=== PATIENT | male | born 1955 | race Hispanic/Latino ===

== ENCOUNTER 2018-03-13 13:56 | Observation (INO) | payer OTHER ==
[~2018-03-13] VITALS: Ht 175.3 cm; Wt 124.0 kg
[2018-03-13] MEDS ORDERED: ASPIRIN 81 MG CHEW TAB PO ONE ×2 (14:15→18:30)
[2018-03-13 14:37] LABS: BASOPHILS % 0.2 % (0.0-1.0); EOSINOPHILS # (AUTO) 0.2 (0.0-0.4); EOSINOPHILS % 1.9 % (0.0-6.0); HEMATOCRIT 39.2 % (38.2-49.6); HEMOGLOBIN 12.8 g/dL (14.0-18.0); LYMPHOCYTES # (AUTO) 1.8 (1.0-3.2); MEAN CORPUSCULAR HEMOGLOBIN 25.8 pg (28-32); MEAN CORPUSCULAR HGB CONC 32.7 g/dL (31-35); MEAN CORPUSCULAR VOLUME 78.9 fL (81-99); MONOCYTES # (AUTO) 0.5 (0.2-0.8); MONOCYTES % 5.9 % (4.4-11.3); NEUTROPHILS # (AUTO) 5.6 (2.1-6.9); NEUTROPHILS % 69.4 % (38.7-80.0); PLATELET COUNT 185 x10e3/uL (140-360); RED BLOOD COUNT 4.97 x10e6/uL (4.3-5.7)
[2018-03-13 14:45] LABS: INR 1.07; PROTHROMBIN TIME 13.1 seconds (11.9-14.5)
[2018-03-13 14:46] LABS: PARTIAL THROMBOPLASTIN TIME 32.6 seconds (23.8-35.5)
[2018-03-13 14:53] LABS: ALBUMIN 3.6 g/dL (3.5-5.0); ALBUMIN/GLOBULIN RATIO 0.9 (0.8-2.0); ANION GAP 14.4 mmol/L (8-16); CALCIUM 9.1 mg/dL (8.4-10.2); CREATININE, SERUM 1.25 mg/dL (0.72-1.25); POTASSIUM 4.4 mmol/L (3.5-5.1)
[2018-03-13 15:00] LABS: CREATINE KINASE MB 2.5 ng/mL (0-5.0)
[2018-03-13] MEDS ORDERED: SODIUM CHLORIDE 0.9% 1000ML 1,000 ML IV STA (15:32)
[2018-03-13] MEDS ORDERED: INSULIN REGULAR, HUMAN 100 UNIT/1 ML 3ML VIAL IV ONE (15:45)
--- NOTE | 2018-03-13 15:52 | Diagnostic Imaging Report ---
EXAMINATION: CHEST 2 VIEWS INDICATION: \S\ORDER PLACED BY \S\[id number] \S\1450 \S\Y COMPARISON: None FINDINGS: PA and lateral views TUBES and LINES: None. LUNGS: Lungs are well inflated. Lungs are clear. There is no evidence of pneumonia or pulmonary edema. PLEURA: No pleural effusion or pneumothorax. HEART AND MEDIASTINUM: The cardiac silhouette is within normal limits. Mildly tortuous thoracic aorta. BONES AND SOFT TISSUES: Degenerative changes of the thoracic spine. Soft tissues are unremarkable. UPPER ABDOMEN: No free air under the diaphragm. IMPRESSION: No acute thoracic abnormality. Mildly tortuous thoracic aorta. Signed by: Dr. Bety Amaya M.D. on 03/13/2018 3:49 PM
[2018-03-13 18:14] LABS: BILIRUBIN,URINE NEGATIVE (NEGATIVE); CLARITY,URINE SL CLOUDY (CLEAR); COLOR,URINE YELLOW (YELLOW); KETONES,URINE NEGATIVE (NEGATIVE); LEUKOCYTE ESTERASE ,URINE NEGATIVE (NEGATIVE); NITRITE,URINE NEGATIVE (NEGATIVE); PROTEIN,URINE DIPSTICK NEGATIVE (NEGATIVE); URINE UROBILINOGEN 0.2 mg/dL (0.2 - 1)
[2018-03-13 18:26] LABS: AMORPHOUS SEDIMENT,URINE FEW (FEW); BACTERIA,URINE RARE /HPF; EPITHELIAL CELLS,URINE RARE /LPF
[2018-03-13] MEDS ORDERED: DEXTROSE 50% SYRINGE 50 ML IV PRN (18:30)
[2018-03-13] MEDS ORDERED: ONDANSETRON HCL INJ 2 MG/ML VIAL IV PRN (18:30)
[2018-03-13] MEDS ORDERED: ENALAPRIL MALEA20 MG PO (18:58)
[2018-03-13] MEDS ORDERED: PRAVASTATIN SOD20 MG PO (18:58)
[2018-03-13] MEDS ORDERED: MECLIZINE HCL25 MG PO (18:58)
[2018-03-13] MEDS ORDERED: LYRICA75 MG PO (18:58)
[2018-03-13] MEDS ORDERED: PANTOPRAZOLE SO40 MG PO (18:58)
[2018-03-13] MEDS ORDERED: ATENOLOL25 MG PO (18:58)
[2018-03-13] MEDS ORDERED: ULTRAM 50MG50 MG PO (18:58)
[2018-03-13] MEDS ORDERED: HUMALOG100 UNIT/3 SC (18:58)
[2018-03-13] MEDS ORDERED: GLIPIZIDE10 MG PO (18:58)
[2018-03-13] MEDS: SODIUM CHLORIDE 0.9% 1000ML 1,000 ML IV SCH (19:08)
[2018-03-13 20:15] VITALS: BP 103/57
[2018-03-13] MEDS ORDERED: INSULIN REGULAR, HUMAN 100 UNIT/1 ML 3ML VIAL SQ SCH (21:00)
[2018-03-13 21:30] VITALS: BP 103/57
[2018-03-13 21:31] VITALS: BP 103/57
[2018-03-14] VITALS (8 sets, daily range): BP systolic 102–136; BP diastolic 61–71
[2018-03-14] MEDS: SODIUM CHLORIDE 0.9% 1000ML 1,000 ML IV SCH ×2 (00:52→14:21)
[2018-03-14 01:51] LABS: CREATINE KINASE 30 IU/L (30-200)
[2018-03-14 05:11] LABS: BASOPHILS % 0.3 % (0.0-1.0); EOSINOPHILS # (AUTO) 0.2 (0.0-0.4); EOSINOPHILS % 3.5 % (0.0-6.0); HEMOGLOBIN 11.8 g/dL (14.0-18.0); LYMPHOCYTES # (AUTO) 1.9 (1.0-3.2); LYMPHOCYTES % 30.7 % (18.0-39.1); MEAN CORPUSCULAR HEMOGLOBIN 25.2 pg (28-32); MEAN CORPUSCULAR HGB CONC 31.1 g/dL (31-35); MONOCYTES # (AUTO) 0.6 (0.2-0.8); MONOCYTES % 8.9 % (4.4-11.3); NEUTROPHILS # (AUTO) 3.5 (2.1-6.9); NEUTROPHILS % 55.8 % (38.7-80.0); PLATELET COUNT 157 x10e3/uL (140-360); RED BLOOD COUNT 4.69 x10e6/uL (4.3-5.7); RED CELL DISTRIBUTION WIDTH 15.1 % (11.7-14.4)
[2018-03-14 05:26] LABS: ANION GAP 11.1 mmol/L (8-16); BLOOD UREA NITROGEN 30 mg/dL (7-26); BUN/CREATININE RATIO 29 (6-25); CALCIUM 8.3 mg/dL (8.4-10.2); CARBON DIOXIDE 23 mmol/L (22-29); CHLORIDE 108 mmol/L (98-107); CREATININE, SERUM 1.05 mg/dL (0.72-1.25); EST GLOMERULAR FILTRATION RATE > 60 ML/MIN (60-); GLUCOSE 319 mg/dL (74-118); POTASSIUM 4.1 mmol/L (3.5-5.1); SODIUM 138 mmol/L (136-145)
[2018-03-14 06:01] LABS: CREATINE KINASE MB 1.7 ng/mL (0-5.0)
--- NOTE | 2018-03-14 06:34 | Diagnostic Imaging Report ---
EXAMINATION: CHEST SINGLE (PORTABLE) INDICATION: Chest pain COMPARISON: 03/13/2018 FINDINGS: TUBES and LINES: None. LUNGS: Lungs are well inflated. Lungs are clear. There is no evidence of pneumonia or pulmonary edema. PLEURA: No pleural effusion or pneumothorax. HEART AND MEDIASTINUM: The cardiomediastinal silhouette is unremarkable. BONES AND SOFT TISSUES: No acute osseous lesion. Partially visualized plate and screws construct at the anterior cervical spine Soft tissues are unremarkable. UPPER ABDOMEN: No free air under the diaphragm. IMPRESSION: No acute thoracic abnormality. Signed by: Dr. Jeevan Avery M.D. on 03/14/2018 6:30 AM
[2018-03-14] MEDS ORDERED: DEXTROSE 50% SYRINGE 50 ML IV PRN (07:30)
--- NOTE | 2018-03-14 08:08 | History and Physical ---
CHIEF COMPLAINT: Chest pain on and off since the last 3 days associated with dizziness. HISTORY OF PRESENT ILLNESS: This 62-year-old male with a past medical history of multiple medical problems was admitted at [facility] last evening with the above complaint. As per patient, since the last 3 to 4 days, he was having left-sided chest pain on and off, no radiation, no relation to exertion. Also, the patient says, "I have had vertigo." The patient feels dizziness, especially on changing positions, a room-spinning sensation. Hence, the patient came to the ER last evening. As per patient, he was admitted at [facility] in [place] last month with chest pain. As per patient, he had cardiac angiogram done at that hospital. The patient does not know the result. At present, the patient is lying comfortably in bed in no apparent distress. No chest pain at present. No nausea, vomiting, or diarrhea. No abdominal pain. No loss of consciousness. No palpitations. No headaches. No hematemesis. No melena, hematuria or dysuria. No fever. No cough. No witnessed seizure. Complains of trouble breathing on exertion. PAST MEDICAL HISTORY 1. Diabetes mellitus, type 2, very uncontrolled. 2. Hypertension. 3. Hyperlipidemia. 4. Chronic pain. 5. Diabetic neuropathy. 6. COPD. 7. Morbid obesity. MEDICATIONS: As listed in the chart. ALLERGIES: NO KNOWN DRUG ALLERGIES. SOCIAL HISTORY: Smoking plus. No alcohol. No illicit drug use. Lives with family. SURGICAL HISTORY 1. C-spine surgery. 2. Hernia surgery. PHYSICAL EXAMINATION GENERAL: The patient is alert, awake and oriented times 3, in no apparent distress, lying in bed. No cyanosis. No icterus. No pallor. VITALS: Temperature is 97, pulse 60 per minute, respiratory rate 18 per minute. Blood pressure is 102/70. Saturation is 96% on 2 L oxygen. HEENT: Normocephalic and atraumatic. PERRLA. NECK: Soft and supple. No JVD. No carotid bruit. No lymphadenopathy. LUNGS: Air entry bilaterally equal. HEART: No murmur, gallop or rub. ABDOMEN: Soft and nontender. Bowel sounds plus. 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 No focal deficit. EXTREMITIES: No cyanosis. No clubbing. No edema. No calf pain. LABS: This morning, white count 6.2, hemoglobin 11.8, hematocrit 38, platelets 157. Sodium 138, potassium 4.1, chloride 108, bicarb 23, BUN 30, creatinine 1.05, glucose 319. CHEST X-RAY: No acute thoracic abnormality. EKG: Normal sinus rhythm at 61 beats per minute. ASSESSMENT 1. Chest pain. 2. Dizziness. 3. History of uncontrolled diabetes mellitus, type 2. 4. Hypertension. 5. Hyperlipidemia. 6. Chronic obstructive pulmonary disease. 7. Morbid obesity. PLAN: Admit the patient to [facility]. Serial cardiac enzymes and echo. Try to get medical records from [facility]. Cardiology consultation with Dr. Man. Neurology consultation with Dr. Trotter. Pulmonary consultation with Dr. Lang. Oxygen and neb treatments. DVT and stress prophylaxis. Rule out orthostatic hypotension. Hold blood pressure medications for now as the patient is running a low blood pressure. Further care and treatment per the clinical course of the patient in the hospital. Discussed with the patient in detail. Prognosis and condition guarded. Job#: [id number]
[2018-03-14] MEDS: INSULIN LISPRO 100 UNIT/1 ML 3ML VIAL SQ SCH ×5 (08:27→20:26)
[2018-03-14] MEDS: ASPIRIN 81 MG ENTERIC COATED PO SCH (08:27)
[2018-03-14 08:46] LABS: CHOL/HDL RATIO 4.2 (3.9-4.7)
[2018-03-14] MEDS ORDERED: INSULIN DETEMIR 100 UNIT/ML PEN SQ SCH (09:00)
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
--- NOTE | 2018-03-14 10:03 | Diagnostic Imaging Report ---
Exam: Head CT without contrast History: Dizziness Comparison studies: None Technique: Axial images were obtained from the skull base to the vertex. Coronal and sagittal images reconstructed from the axial data. Dose modulation, iterative reconstruction, and/or weight based adjustment of the mA/kV was utilized to reduce the radiation dose to as low as reasonably achievable. Radiation dose: Total DLP: 1036 mGy*cm. Estimated effective dose: DLP x 0.015 Intravenous contrast: None Findings: Scalp: No abnormalities. Bones: No fractures, blastic or lytic lesions. Brain sulci: Mildly prominent but age appropriate. Ventricles: Normal in size and configuration. No hydrocephalus. Extra-axial spaces: No masses, no fluid collection. Parenchyma: No abnormal densities. No mass, acute hemorrhage or acute or chronic cortical vascular insults. Sellar/suprasellar region: No abnormalities. Craniocervical junction: Patent foramen magnum. No Chiari one malformation. Incidental findings: Atherosclerotic calcifications in the carotid siphons. IMPRESSION: No acute intracranial abnormalities. Signed by: Dr. Raul Hernandez M.D. on 03/14/2018 9:59 AM
[2018-03-14 11:59] LABS: FREE THYROXINE INDEX 1.9445 (1.4-3.8); THYROID STIMULATING HORMONE 1.688 uIU/mL (0.350-4.940)
--- NOTE | 2018-03-14 12:44 | Consultation ---
DATE OF CONSULTATION: REASON FOR CONSULTATION: Possibility of sleep apnea, shortness of breath. HISTORY OF PRESENT ILLNESS: Mr. Singh is a 62-year-old male who was admitted through the emergency room with the complaints of chest pain off and on for the last 3 days along with shortness of breath. He reports that he is feeling dizzy as well. He denies any nausea, vomiting. As per the patient he was at [facility] last month with a similar complaint and had angiogram done at the hospital. He reports that he has been a smoker for 30 years 1 pack per day and he also snores, feels excessively sleepy during the day. He has been told that he possibly has sleep apnea; however, he has never been tested for it. REVIEW OF SYSTEMS GENERAL: Denies any fever or chills. HEENT: Head: Denies any head trauma. ENT: Denies any earache. CVS: Having chest pain. RESPIRATORY: Shortness of breath. GI: Denies any nausea, vomiting. MUSCULOSKELETAL: Denies any arthralgias, myalgias. NEURO: Denies any focal weakness. The rest of the review of systems is negative except as in HPI. PAST MEDICAL HISTORY: Diabetes, hypertension, hyperlipidemia, diabetic neuropathy, morbid obesity, possible COPD, possible obstructive sleep apnea. FAMILY AND SOCIAL HISTORY: Smoking for 30+ years, 1 pack per day. No alcohol use. Lives with his brother currently. SURGICAL HISTORY: C-spine, hernia surgery. PHYSICAL EXAMINATION VITALS: Temperature 96.2, pulse of 55, blood pressure 128/61, respiratory rate of 18. O2 sat 98% on 2 liters. HEENT: Head: Atraumatic, normocephalic. GENERAL: Morbidly obese body habitus, highly suggestive of obstructive sleep apnea. CHEST: Clear to auscultation bilaterally. No wheezing. HEART: S1, S2 audible. ABDOMEN: Soft, nontender. EXTREMITIES: No clubbing, cyanosis, or edema. NEUROLOGIC: He is awake and alert. Following commands. Episodes of confusion. Pupils are small size. LABORATORY DATA: White count of 6.2, hemoglobin 11.8, platelets 157. Chemistry: Sodium 138, potassium 4.1, chloride 108, BUN 30, creatinine 1.05. TSH is pending. Brain CT was done in the emergency room which is showing no acute abnormalities. ASSESSMENT AND PLAN: Mr. Singh is a 62-year-old male who is obese, body habitus highly suggestive of obstructive sleep apnea, a smoker for 30+ years, high likelihood of chronic obstructive pulmonary disease, appears to be very somnolent now and possibly altered episodically. CURRENT PROBLEMS 1. Increasing somnolence, altered mental status. 2. High likelihood of obstructive sleep apnea and/or obesity hypoventilation. 3. Smoker, high likelihood of COPD. 4. Hypertension. 5. Morbid obesity. 6. Possible coronary artery disease. PLANS 1. I will do an ABG to rule out hypercapnia as reason for altered mental status. 2. BiPAP to be used during hours of sleep. 3. Nebulizer treatment q.6 hourly for now. No need for IV steroids now. Patient does not appear to be in any acute exacerbation of COPD. Job#: [id number] AYLIN
[2018-03-14] MEDS: ALBUTEROL/IPRATROPIUM 3 ML NEB NEB SCH ×2 (12:55→19:40)
[2018-03-14 14:05] LABS: AMPHETAMINES SCREEN,URINE NEGATIVE (NEGATIVE); BENZODIAZEPINES SCREEN,URINE POSITIVE (NEGATIVE); PHENCYCLIDINE SCREEN,URINE NEGATIVE (NEGATIVE)
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
--- NOTE | 2018-03-14 14:36 | Consultation ---
DATE OF CONSULTATION: March 14, 2018 ENDOCRINE CONSULTATION PATIENT OF: Dr. Alfonso. Thank you very much for referring this patient. HISTORY OF PRESENT ILLNESS: This is a 62-year-old gentleman who is referred to me for evaluation of uncontrolled diabetes mellitus. Patient tells me he is a known diabetic for almost 15 plus years and takes about 85 units of Levemir at bedtime and about 30 to 40 units of Humalog with each meal. Patient came to the hospital with history of shortness of breath, chest pain, and his blood sugar was 584. His anion gap; however, was within the range around 14.4. Patient is on multiple medications at home. He also has history of hypertension and hyperlipidemia. He is a chronic smoker. He has COPD. PHYSICAL EXAMINATION GENERAL: Today, the patient is alert, awake, and a little bit apprehensive. VITAL SIGNS: Heart rate is around 78, blood pressure 146/86 mmHg. HEENT: Essentially unremarkable. CHEST: He has bilateral bronchospasm. CARDIAC: Both first and second heart sounds. There is no third or fourth heart sound. Ejection systolic murmur, grade 2/6. EXTREMITIES: The patient has evidence of diabetic sensory neuropathy in both lower extremities. CLINICAL IMPRESSION: Diabetes mellitus type 2, uncontrolled with complications, insulin resistant syndrome, chronic obstructive pulmonary disease, chronic smoker, rule out cerebrovascular accident, hypertension, chest pain, and chronic renal insufficiency. PLAN: The plan at this time is to do a hemoglobin A1c and thyroid function test. Monitor his blood sugars very closely. I have put him back on the Levemir insulin twice a day and Humalog 3 times a day. Patient has been also instructed to follow up with me. We might consider U-500 insulin if his blood sugar continues to be significantly elevated. Thanks for referring this patient. I will be following this patient with you. Job#: [id number] ABEL
[2018-03-14 16:31] LABS: FREE T4 (FREE THYROXINE) 0.96 ng/dL (0.9-1.8); THYROID STIMULATING HORMONE 0.881 uIU/mL (0.350-4.940)
--- NOTE | 2018-03-14 16:33 | Diagnostic Imaging Report ---
Exam: Brain MRI without IV contrast History: Evaluate for posterior circulation stroke Comparison studies: Head CT 03/14/2018 Technique: Sagittal T2 FS, axial T2 FLAIR, axial T1 FLAIR and axial DWI. Intravenous contrast: None Findings: Exam was terminated early due to the patient's condition. The axial T2*GRE sequence and axial T2 sequences, as per institution protocol, were unable to be obtained. Scalp: Normal in signal. No masses. Bone marrow: Normal in signal intensity. Brain sulci: Appropriate for age. Ventricles: Normal in size. No hydrocephalus. Extra axial spaces: No mass, no fluid collection. Parenchyma: No abnormal signal intensities. No masses, hemorrhage, acute or chronic vascular insults. Suprasellar region: No abnormalities. Craniocervical junction: Patent foramen magnum. No Chiari malformation. Vessels: Normal flow-voids in the arteries and sinuses. IMPRESSION: Limited exam terminated early due to the patient's condition. In spite of this limitation there is no acute ischemia or other acute intracranial abnormalities. Signed by: Dr. Raul Hernandez M.D. on 03/14/2018 4:29 PM
[2018-03-14] MEDS: ENOXAPARIN SOD INJ 40 MG/0.4 ML SYR SC SCH ×2 (17:00→18:04)
[2018-03-14] MEDS: ACETAMINOPHEN 325 MG TAB PO PRN (20:16)
[2018-03-14] MEDS: INSULIN DETEMIR 100 UNIT/ML PEN SQ SCH (20:26)
[2018-03-15] VITALS: BP 140/72
[2018-03-15] MEDS: SODIUM CHLORIDE 0.9% 1000ML 1,000 ML IV SCH (00:21)
[2018-03-15] MEDS: ALBUTEROL/IPRATROPIUM 3 ML NEB NEB SCH ×2 (01:20→07:00)
[2018-03-15 05:38] LABS: ANION GAP 12.9 mmol/L (8-16); BLOOD UREA NITROGEN 21 mg/dL (7-26); BUN/CREATININE RATIO 26 (6-25); CALCIUM 8.4 mg/dL (8.4-10.2); CARBON DIOXIDE 23 mmol/L (22-29); CHLORIDE 106 mmol/L (98-107); CREATININE, SERUM 0.81 mg/dL (0.72-1.25); EST GLOMERULAR FILTRATION RATE > 60 ML/MIN (60-); GLUCOSE 184 mg/dL (74-118); POTASSIUM 3.9 mmol/L (3.5-5.1); SODIUM 138 mmol/L (136-145)
[2018-03-15 05:59] VITALS: BP 146/66
[2018-03-15] MEDS: ASPIRIN 81 MG ENTERIC COATED PO SCH (08:21)
[2018-03-15 08:22] VITALS: BP 142/63
[2018-03-15] MEDS: ACETAMINOPHEN 325 MG TAB PO PRN (08:30)
[2018-03-15] MEDS: INSULIN LISPRO 100 UNIT/1 ML 3ML VIAL SQ SCH ×4 (08:42→11:51)
[2018-03-15] MEDS: INSULIN DETEMIR 100 UNIT/ML PEN SQ SCH (08:43)
[2018-03-15 12:05] VITALS: BP 152/78
== END 2018-03-15 12:42 | disposition home or self-care (01) ==
LOC: ER 13:56 → ERHOLD 18:44 → IMCU 19:57
PROVIDERS: ADMIT Internal Medicine; ATTEND Internal Medicine
DX: R07.9 Chest pain, unspecified (principal); E11.65 Type 2 diabetes mellitus with hyperglycemia; I11.0 Hypertensive heart disease with heart failure; I50.9 Heart failure, unspecified; Z82.49 Family history of ischemic heart disease and other diseases of the circulatory system; E78.5 Hyperlipidemia, unspecified; G89.29 Other chronic pain; E11.42 Type 2 diabetes mellitus with diabetic polyneuropathy; J44.9 Chronic obstructive pulmonary disease, unspecified; E66.01 Morbid (severe) obesity due to excess calories; F03.90 Unspecified dementia, unspecified severity, without behavioral disturbance, psychotic disturbance, mood disturbance, and anxiety; F17.210 Nicotine dependence, cigarettes, uncomplicated; R41.82 Altered mental status, unspecified; I25.2 Old myocardial infarction; Z79.4 Long term (current) use of insulin; Z68.41 Body mass index [BMI] 40.0-44.9, adult; G93.40 Encephalopathy, unspecified
CPT/HCPCS: 36415 ×2; 70450; 70551; 71045; 71046; 80048 ×2; 80053; 80061; 80307; 80320; 81001; 82140; 82550 ×2; 82553 ×2; 82607; 82948 ×3; 83036; 83880; 84425; 84436; 84439; 84443; 84479; 84484 ×2; 85025 ×2; 85610; 85730; 86592; 93005 ×2; 93306; 93880; 94640 ×3; 96360; 96372; 97139; 99284; G0378 ×3; J2405; J7030 ×2; J1650